=== PATIENT | male | born 1965 | race African-American/Black ===

== ENCOUNTER 2021-01-01 11:37 | Emergency (ER) | payer OTHER ==
[2021-01-01] MEDS ORDERED: Boostrix 0.5 ML (Tdap) VIAL ONE (11:53)
== END 2021-01-01 12:40 | disposition home or self-care (01) ==
LOC: NAV ERS 11:37
DX: S91.342A Puncture wound with foreign body, left foot, initial encounter (principal); F17.290 Nicotine dependence, other tobacco product, uncomplicated; Z23 Encounter for immunization; W45.0XXA Nail entering through skin, initial encounter
CPT/HCPCS: 28190; 90471; 90715

== ENCOUNTER 2021-04-25 16:35 | Emergency (ER) | payer OTHER, SELFPAY ==
[2021-04-25] MEDS ORDERED: Lidocaine 1% w/Epinephrine 1:100K 20 ML VIAL ONE (16:43)
[2021-04-25] MEDS ORDERED: Bacitracin 1 PK ONE (17:25)
== END 2021-04-25 17:35 | disposition home or self-care (01) ==
LOC: NAV ERS 16:35
DX: S31.113A Laceration without foreign body of abdominal wall, right lower quadrant without penetration into peritoneal cavity, initial encounter (principal); I10 Essential (primary) hypertension; F17.210 Nicotine dependence, cigarettes, uncomplicated; W26.8XXA Contact with other sharp object(s), not elsewhere classified, initial encounter; Y93.39 Activity, other involving climbing, rappelling and jumping off; Y92.69 Other specified industrial and construction area as the place of occurrence of the external cause
CPT/HCPCS: 12032

== ENCOUNTER 2021-04-27 06:39 | Emergency (ER) | payer SELFPAY ==
[2021-04-27] MEDS ORDERED: Sulfameth/Trimethoprim DS 800-160mg TAB ONE (07:35)
== END 2021-04-27 07:44 | disposition home or self-care (01) ==
LOC: NAV ERS 06:39
DX: T81.49XA Infection following a procedure, other surgical site, initial encounter (principal); L03.311 Cellulitis of abdominal wall; I10 Essential (primary) hypertension; F17.210 Nicotine dependence, cigarettes, uncomplicated
CPT/HCPCS: 99283